=== PATIENT | female | born 1980 | race American Indian/Alaskan Native ===

== ENCOUNTER 2016-08-25 00:11 | Emergency (ER) | payer BC ==
[2016-08-25 00:23] VITALS: BMI 31.8
[2016-08-25 00:46] VITALS: TEMP 97.8; O2SAT 99
--- NOTE | 2016-08-25 01:04 | ED PDOC ---
Arrival/HPI - General Chief Complaint: Dental Pain Time Seen by Provider: 08/25/16 01:01 Historian: Patient - History of Present Illness Narrative History of Present Illness (Text): 08/25/16 01:01 Sandee Kumar is a 35 year old female who presents to the emergency department complaining of right upper tooth ache tonight. Patient states she has been taking Aleve for pain with relief and reports she scheduled for a root canal on 09/05/16. Patient denies any fever, chills, sore throat, headache, dizziness, or any other complaints. Time/Duration: Other (tonight) Symptom Onset: Gradual Symptom Course: Unchanged Quality: Aching Activities at Onset: Rest, Light Context: Home Past Medical History - Provider Review Nursing Documentation Reviewed: Yes - Psychiatric Hx Psychophysiologic Disorder: No Hx Substance Use: No - Anesthesia Hx Anesthesia: No Family/Social History - Physician Review Nursing Documentation Reviewed: Yes Family/Social History: No Known Family HX Smoking Status: Never Smoked Hx Alcohol Use: Yes Frequency of alcohol use: Socially Hx Substance Use: No Allergies/Home Meds Allergies/Adverse Reactions: Allergies No Known Allergies Allergy (Verified 08/25/16 01:02) Review of Systems - Physician Review All systems were reviewed & negative as marked: Yes - Review of Systems Constitutional: Normal. absent: Fevers Eyes: Normal ENT: Other (+right upper tooth ache) Respiratory: Normal. absent: SOB, Cough Cardiovascular: Normal. absent: Chest Pain Gastrointestinal: Normal. absent: Abdominal Pain, Diarrhea, Nausea, Vomiting Genitourinary Female: Normal. absent: Dysuria, Frequency, Hematuria, Urine Output Changes Musculoskeletal: Normal. absent: Back Pain, Neck Pain Skin: Normal. absent: Rash Neurological: Normal. absent: Headache, Dizziness Endocrine: Normal Hemo/Lymphatic: Normal Psychiatric: Normal Physical Exam Vital Signs Reviewed: Yes Vital Signs Temp Pulse Resp BP Pulse Ox 08/25/16 00:44 97.8 F 70 18 137/68 99 08/25/16 00:14 99 F 74 20 107/64 98 Temperature: Afebrile Blood Pressure: Normal Pulse: Regular Respiratory Rate: Normal Appearance: Positive for: Well-Appearing, Non-Toxic, Comfortable Pain Distress: None Mental Status: Positive for: Alert and Oriented X 3 - Systems Exam Head: Present: Atraumatic, Normocephalic Pupils: Present: PERRL Extroacular Muscles: Present: EOMI Conjunctiva: Present: Normal Mouth: Present: Moist Mucous Membranes, Other (Small pustule on gingiva/right upper molar, no obvious abscess) Neck: Present: Normal Range of Motion Respiratory/Chest: Present: Clear to Auscultation, Good Air Exchange. No: Respiratory Distress, Accessory Muscle Use Cardiovascular: Present: Regular Rate and Rhythm, Normal S1, S2. No: Murmurs Neurological: Present: GCS=15, CN II-XII Intact, Speech Normal Skin: Present: Warm, Dry, Normal Color. No: Rashes Psychiatric: Present: Alert, Oriented x 3, Normal Insight, Normal Concentration Medical Decision Making ED Course and Treatment: 08/25/16 01:01 Impression: 35 year old female complaining of right upper toothache tonight. Plan: -- Ultram -- Amoxil -- Reassess and disposition Progress Notes: 08/25/16 01:45 Patient is resting comfortably, and is in no acute distress. Discussed plan for d/c with pt, who is aware and verbalizes understanding. Pt stable for d/c home. Patient was instructed to follow up with dentist/clinic in 1-2 days for further evaluation. - Medication Orders Current Medication Orders: Discontinued Medications Amoxicillin (Amoxil 500 Mg Cap) 500 mg PO STAT STA PRN Reason: Protocol Stop: 08/25/16 01:08 Last Admin: 08/25/16 01:30 Dose: 500 MG Tramadol/Acetaminophen (Ultracet 37.5/325 Mg) 1 tab PO ONCE STA Stop: 08/25/16 01:08 Last Admin: 08/25/16 01:30 Dose: 1 TAB - Scribe Statement The provider has reviewed the documentation as recorded by the Boom Bruce Provider Attestation: All medical record entries made by the Boom were at my direction and personally dictated by me. I have reviewed the chart and agree that the record accurately reflects my personal performance of the history, physical exam, medical decision making, and the department course for this patient. I have also personally directed, reviewed, and agree with the discharge instructions and disposition. Disposition/Present on Arrival - Present on Arrival Any Indicators Present on Arrival: No History of DVT/PE: No History of Uncontrolled Diabetes: No Urinary Catheter: No History of Decub. Ulcer: No History Surgical Site Infection Following: None - Disposition Have Diagnosis and Disposition been Completed?: Yes Diagnosis: Toothache Disposition: HOME/ ROUTINE Disposition Time: 01:42 Patient Plan: Discharge Patient Problems: Current Active Problems Problem Status Diagnosed Toothache Acute Condition: GOOD Discharge Instructions (ExitCare): Toothache (ED), Dental Abscess (ED) Additional Instructions: Take meds as prescribed/Follow up with your dentist tommorrow for further follow up care Prescriptions: Amoxicillin [Amoxil 500 mg Cap] 500 mg PO TID #21 cap traMADol/Acetaminophen [Ultracet 325 MG-37.5 MG] 1 tab PO Q6 PRN #12 tab PRN Reason: Pain
[2016-08-25] MEDS ORDERED: TraMADol/Apap 37.5/325 mg Tab PO STA (01:07)
[2016-08-25 01:56] VITALS: BP 100/71; PULSE 68; RESP 16
== END 2016-08-25 01:56 | disposition home or self-care (01) ==
LOC: ED 00:11
DX: K08.89 Other specified disorders of teeth and supporting structures (principal)